=== PATIENT | female | born 1995 | race Caucasian/White ===

== ENCOUNTER 2017-02-03 09:29 | Emergency (ER) | payer MEDICAID ==
[2017-02-03 10:16] VITALS: BP 107/67; PULSE 84; RESP 16; TEMP 97.9; O2SAT 97
--- NOTE | 2017-02-03 10:37 | UCPHY ---
H & P Time Seen by Provider: 02/03/17 10:26 Patient Type: Established HPI/ROS: This patient complains of left eye redness and discharge over the past 24 hours with minimal irritation. She has associated coryza over the past week with mild sore throat and occasional cough. She states that the sore throat does not worsen with eating. Her cough is dry. No exacerbating or alleviating factors. ROS: No high fevers or chills. No other constitutional symptoms. HEENT: No ear pain. No change in her voice. No vision changes. Pulmonary: No pleuritic pain or dyspnea. GI: No vomiting. No skin rash. 7 point ROS is otherwise negative. Past Medical/Surgical History: Otherwise healthy Smoking Status: Never smoked Physical Exam: Physical Exam Vital signs are normal. General: No acute distress HEENT: Nose: Clear discharge bilaterally. No sinus tenderness to percussion. Ears: External canals and tympanic membranes are clear with no erythema or abnormal findings bilaterally. Oropharynx: No erythema or exudates. No dysphonia. No drooling or stridor. Eyes: Left eye conjunctival injection is present. Lids and lashes are normal. Pupils equal and react to light. Extraocular motions are intact. Lungs: Clear to auscultation bilaterally . She has mild wheeze when she force flex heels or coughs. No rales or rhonchi. No respiratory distress. Cardiac: Regular rate and rhythm with no murmur gallop or rub Skin: No rash or pallor. Neuro: Alert with no focal deficits noted. Initial differential diagnosis: Conjunctivitis, viral URI with cough, viral bronchitis, strep versus viral pharyngitis. Constitutional: Initial Vital Signs Temperature (C) 36.6 C 02/03/17 10:14 Heart Rate 84 02/03/17 10:14 Respiratory Rate 16 02/03/17 10:14 Blood Pressure 107/67 02/03/17 10:14 O2 Sat (%) 97 02/03/17 10:14 O2 Delivery Mode Room Air Allergies/Adverse Reactions: No Known Allergies Allergy (Unverified 02/03/17 10:16) Home Medications: Medication Instructions Recorded Albuterol Hfa Anes Only [Proair 2 puffs IH Q4 PRN #1 mdi 02/03/17 Hfa Icu (*)] Ofloxacin 0.3% [Ocuflox 0.3% (RX)] 2 drops EACHEYE Q1 #1 btl 02/03/17 Medical Decision Making - Data Points Laboratory Results: 02/03/17 10:15 Group A Strep Screen Pending Departure - Departure Disposition: Home, Routine, Self-Care Clinical Impression: Viral URI with cough Conjunctivitis Qualifiers: Conjunctivitis type: acute Acute conjunctivitis type: unspecified Laterality: left Qualified Code(s): H10.32 - Unspecified acute conjunctivitis, left eye Pharyngitis Qualifiers: Pharyngitis/tonsillitis etiology: unspecified etiology Qualified Code(s): J02.9 - Acute pharyngitis, unspecified Condition: Good Instructions: Conjunctivitis (ED), Upper Respiratory Infection (ED) Additional Instructions: Diagnoses: 1. Conjunctivitis 2. Viral Upper respiratory infection with cough 3. Pharyngitis Referrals: [facility],. [Primary Care Provider] - As per Instructions Prescriptions: Albuterol Hfa Anes Only [Proair Hfa Icu (*)] 2 puffs IH Q4 PRN #1 mdi PRN Reason: Wheezing Ofloxacin 0.3% [Ocuflox 0.3% (RX)] 2 drops EACHEYE Q1 #1 btl - PQRS PQRS Measurement: NA
== END 2017-02-03 10:51 | disposition home or self-care (01) ==
LOC: CED 09:29
DX: H10.32 Unspecified acute conjunctivitis, left eye (principal); J02.9 Acute pharyngitis, unspecified
CPT/HCPCS: 87880-PO; 99214-PO; G0463-PO